=== PATIENT | female | born 1980 | race Caucasian/White ===

== ENCOUNTER 2018-06-20 09:48 | Emergency (ER) | payer MEDICAID ==
[~2018-06-20] VITALS: Ht 180.3 cm; Wt 86.2 kg
--- NOTE | 2018-06-20 10:37 | RAD ---
EXAM: PA, oblique and lateral views of the left hand DATE: 06/20/2018 10:24 AM INDICATION: injury last night pain, swelling and brusing. most pain around web of hand COMPARISON: No Prior FINDINGS: There is a nondisplaced fracture at the base of the second metacarpal without definite CMC joint extension. Associated soft tissue swelling is seen. Joint spaces are preserved without significant degenerative/proliferative change. IMPRESSION: 1. Nondisplaced transverse fracture base of second metacarpal without articular surface extension. Electronically signed by: Carlos Duggan MD (06/20/2018 10:34 AM) [facility]
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
[2018-06-20] MEDS ORDERED: HYDR-3165 PO (11:05)
[2018-06-20] MEDS: HYDROcodone/APAP 5/325MG 1 TAB TABLET PO ONE (11:27)
[2018-06-20 11:28] VITALS: BP 117/70
== END 2018-06-20 11:28 | disposition home or self-care (01) ==
LOC: ER 09:48
DX: S62.341A Nondisplaced fracture of base of second metacarpal bone, left hand, initial encounter for closed fracture (principal); W18.39XA Other fall on same level, initial encounter; Y93.89 Activity, other specified; Y92.89 Other specified places as the place of occurrence of the external cause; Y99.8 Other external cause status
CPT/HCPCS: 29125; 73130; 99283